=== PATIENT | male | born 1970 | race Caucasian/White ===

== ENCOUNTER 2020-02-28 12:35 | Emergency (ER) | payer MEDICAID ==
[~2020-02-28] VITALS: Ht 182.9 cm; Wt 70.3 kg
--- NOTE | 2020-02-28 12:57 | NUR ---
Pt walked out of the ER.
== END 2020-02-28 13:13 | disposition left against medical advice (07) ==
LOC: ER 12:36
DX: Z75.3 Unavailability and inaccessibility of health-care facilities (principal)